=== PATIENT | male | born 1975 | race Caucasian/White ===

== ENCOUNTER 2017-07-23 19:57 | Emergency (ER) | payer OTHER ==
[2017-07-23 20:02] VITALS: RESP 18
--- NOTE | 2017-07-23 20:09 | C.PDOC ---
History Of Present Illness 42 yo male come in for evaluation of facial laceration over left cheek sustained hour ago, "while playing sport with friends". Otherwise, pt denies LOC , syncope, severe headache, dizziness, visual changes, N/V, neck pain, drooling , dysphagia, dyspnea, trismus, CP, SOB, abd. pain, denies deformity, weakness, to B/L UEs and LEs. Ambulate to ED for evaluation, not n any apparent distress. Time Seen by Provider: 07/23/17 20:03 Chief Complaint (Nursing): Abnormal Skin Integrity History Per: Patient Onset/Duration Of Symptoms: Sudden Onset Past Medical History Reviewed: Historical Data, Nursing Documentation, Vital Signs Vital Signs: Last Vital Signs Temp 98.1 F 07/23/17 20:00 Pulse 79 07/23/17 20:00 Resp 18 07/23/17 20:00 BP 122/76 07/23/17 20:00 Pulse Ox 98 07/23/17 20:19 - Medical History PMH: No Chronic Diseases Surgical History: No Surg Hx Family History: States: Unknown Family Hx - Social History Hx Tobacco Use: No Hx Alcohol Use: No Hx Substance Use: No - Immunization History Hx Tetanus Toxoid Vaccination: No Hx Influenza Vaccination: Yes Hx Pneumococcal Vaccination: No Review Of Systems Except As Marked, All Systems Reviewed And Found Negative. Constitutional: Negative for: Fever, Chills Eyes: Negative for: Vision Change ENT: Negative for: Ear Discharge, Nose Discharge, Mouth Swelling Cardiovascular: Negative for: Chest Pain Respiratory: Negative for: Cough, Shortness of Breath Gastrointestinal: Negative for: Nausea, Vomiting, Abdominal Pain Skin: Positive for: Lesions Neurological: Negative for: Weakness, Numbness, Altered Mental Status, Headache , Dizziness Physical Exam - Physical Exam Appears: Well, Non-toxic, No Acute Distress Skin: Normal Color, Warm, Other (Left cheek: 2cm linear laceration, superficial , no wound FB, no palpable deformity, no edema, no discharges.) Head: Atraumatic, Normacephalic Eye(s): bilateral: PERRL, EOMI Ear(s): Bilateral: Normal Nose: No Discharge, No Deformity, No Tenderness Oral Mucosa: Moist, No Drooling Tongue: Normal Appearing Lips: Normal Appearing Throat: No Erythema, No Exudate, No Drooling Neck: Trachea Midline, No Midline Cervical Tenderness, No Paracervical Tenderness, No Step Off Deformity, Supple Chest: No Deformity, No Tenderness Gastrointestinal/Abdominal: Soft, No Tenderness Back: No Vertebral Tenderness Extremity: Normal ROM, No Tenderness, No Deformity Extremity: Bilateral: Atraumatic Neurological/Psych: Oriented x3, Normal Speech, Normal Motor, Normal Sensation, Normal Reflexes ED Course And Treatment O2 Sat by Pulse Oximetry: 98 Pulse Ox Interpretation: Normal Progress Note: On re-eavluation, pt is afebrile, hemodynamicaly stable. Non- toxic. AMbulaoty rin ED with stable agit. Head: NC, (+) Left cheek laceration repaired with skin adhesive w/o complication. No deformity, no contusion, no wound discahrges. neck: Supple, (-) midline tenderness. Neurologicaly intact. Pt advised OBS 48 hrs for any sign of head injury-return to ED if any new changes. Advised on wound care. ref. to f/u with PMD in 2 days for re-eval. Laceration - Laceration Repair Left cheek Wound Length (In cm): 2 Description Of Wound: Linear Wound Cleansed With: Betadine Wound Examination: Irrigated With Saline, No FB With Wound Exploration Wound Closure: Steri Strips, Skin Glue Wound Complexity: Simple Disposition Counseled Patient/Family Regarding: Diagnosis, Need For Followup - Disposition Referrals: [facility] [Outside] Disposition: HOME/ ROUTINE Disposition Time: 20:13 Condition: STABLE Additional Instructions: OBSERVE 48 HOURS FOR ANY SIGN OF HEAD INJURY-INTRACTABLE HEADACHE, VOMITING, VISUAL CHANGES, FOCAL [id number] TO ED IMMEDIATELY FOR RE-EVALUATION. KEEP WOUND DRY FOR 3-4 DAYS DO NOT REMOVE STERI-STRIPS UNTIL IT FALLS OFF ITS OWN FOLLOW UP WITH PMD IN 2-3 DAYS FOR RE-EVALUATION. RETURN TO ED AT ANY TIME IF ANY SIGN OF INFECTION. Instructions: Laceration (ED), Head Injury (ED), Skin Adhesive Care (ED) Forms: [employer] (Malay) Print Language: ERITREAN - Clinical Impression Clinical Impression: Laceration, Head injury
[2017-07-23 20:38] VITALS: BP 117/72; PULSE 66; TEMP 97.8; O2SAT 96
== END 2017-07-23 20:39 | disposition home or self-care (01) ==
LOC: C.ER 19:57
DX: S01.412A Laceration without foreign body of left cheek and temporomandibular area, initial encounter (principal); S09.90XA Unspecified injury of head, initial encounter; X58.XXXA Exposure to other specified factors, initial encounter; Z23 Encounter for immunization

== ENCOUNTER 2017-07-26 23:32 | Emergency (ER) | payer OTHER ==
[2017-07-26 23:38] VITALS: BP 124/78; PULSE 67; RESP 16; TEMP 97.6; O2SAT 98
--- NOTE | 2017-07-26 23:54 | C.PDOC ---
History Of Present Illness Patient presents to ED for wound check of left cheek laceration sustained two days ago. Patient states he thinks yesterday he had some blood leaking from the area. Patient denies fever, redness, new injuries. Time Seen by Provider: 07/26/17 23:41 Chief Complaint (Nursing): Abnormal Skin Integrity History Per: Patient History/Exam Limitations: no limitations Location Of Injury: Left: Face Severity: Mild Past Medical History Reviewed: Historical Data, Nursing Documentation, Vital Signs Vital Signs: Last Vital Signs Temp 97.6 F 07/26/17 23:35 Pulse 67 07/26/17 23:35 Resp 16 07/26/17 23:35 BP 124/78 07/26/17 23:35 Pulse Ox 98 07/26/17 23:54 - Medical History PMH: No Chronic Diseases Family History: States: No Known Family Hx - Social History Hx Tobacco Use: No Hx Alcohol Use: No Hx Substance Use: No - Immunization History Hx Tetanus Toxoid Vaccination: Yes Hx Influenza Vaccination: Yes Hx Pneumococcal Vaccination: No Review Of Systems Except As Marked, All Systems Reviewed And Found Negative. Constitutional: Negative for: Fever, Chills Cardiovascular: Negative for: Chest Pain Respiratory: Negative for: Cough, Shortness of Breath Skin: Positive for: Other (left facial laceration ). Negative for: Rash Physical Exam - Physical Exam Appears: Well, Non-toxic, No Acute Distress Skin: Other (well healing left sided facial laceration, inferior to left eye, approx 2cm in length, no dehisence, no erythema, no discharge ) Eye(s): bilateral: Normal Inspection Oral Mucosa: Moist Cardiovascular: Rhythm Regular Respiratory: Normal Breath Sounds, No Rales, No Rhonchi, No Wheezing Neurological/Psych: Oriented x3 ED Course And Treatment O2 Sat by Pulse Oximetry: 98 (RA) Pulse Ox Interpretation: Normal Progress Note: Patient reassessed that wound is healing well and has no signs of infection. Steri-strip applied to area by me, patient tolerated well. He was instructed to follow up with PMD/clinic in 1-2 days, and understands he should return to ED if he has any concerning symptoms. Disposition Counseled Patient/Family Regarding: Diagnosis, Need For Followup - Disposition Referrals: [facility] [Outside] Disposition: HOME/ ROUTINE Disposition Time: 23:50 Condition: STABLE Additional Instructions: FOLLOW UP WITH YOUR DOCTOR/CLINIC IN 1-2 DAYS RETURN TO ER IF YOU HAVE ANY CONCERNING SYMPTOMS Instructions: Acute Wound Care (ED) Forms: [employer] ([place]an) Print Language: POLISH - Clinical Impression Clinical Impression: Facial laceration, Visit for wound check
== END 2017-07-27 | disposition home or self-care (01) ==
LOC: C.ER 23:32
DX: Z48.00 Encounter for change or removal of nonsurgical wound dressing (principal)

== ENCOUNTER 2018-09-12 17:23 | Emergency (ER) | payer OTHER, MEDICAID ==
[2018-09-12 17:39] VITALS: BP 116/79; PULSE 75; RESP 18; TEMP 98; O2SAT 98
--- NOTE | 2018-09-12 17:50 | C.PDOC ---
History Of Present Illness 43 year old male presents to the ED complaining of left shoulder pain that began this morning after waking up. Pain is aching, non-radiating, and worse with movement. Denies taking any medications for the pain. Denies weakness or numbness. Time Seen by Provider: 09/12/18 17:46 Chief Complaint (Nursing): Upper Extremity Problem/Injury History Per: Patient History/Exam Limitations: no limitations Onset/Duration Of Symptoms: Hrs Current Symptoms Are (Timing): Still Present Quality: Aching Exacerbating Factor(s): Movement Past Medical History Reviewed: Historical Data, Nursing Documentation, Vital Signs Vital Signs: Last Vital Signs Temp 98 F 09/12/18 17:36 Pulse 75 09/12/18 17:36 Resp 18 09/12/18 17:36 BP 116/79 09/12/18 17:36 Pulse Ox 98 09/12/18 17:36 - Medical History PMH: No Chronic Diseases Family History: States: No Known Family Hx - Social History Hx Tobacco Use: No Hx Alcohol Use: No Hx Substance Use: No - Immunization History Hx Tetanus Toxoid Vaccination: Yes Hx Influenza Vaccination: Yes Hx Pneumococcal Vaccination: No Review Of Systems Musculoskeletal: Positive for: Shoulder Pain (left) Neurological: Negative for: Weakness, Numbness Physical Exam - Physical Exam Appears: Non-toxic, No Acute Distress Skin: Warm, Dry, No Rash Head: Normacephalic Eye(s): bilateral: Normal Inspection Nose: Normal Oral Mucosa: Moist Neck: Supple Chest: Symmetrical Extremity: Normal ROM (left shoulder), Capillary Refill (less than 2 sec to left shoulder ), No Deformity, No Swelling Pulses: Left Radial: Normal, Right Radial: Normal Neurological/Psych: Oriented x3, Normal Speech, Normal Motor, Normal Sensation, Normal Reflexes Gait: Steady ED Course And Treatment O2 Sat by Pulse Oximetry: 98 (RA) Pulse Ox Interpretation: Normal Medical Decision Making Medical Decision Making: Impression: Shoulder pain atraumatic Plan: Motrin. Based on history and exam, xray not clinically indicated. Patient treated with Motrin with moderate relief. Patient stable for discharge and to follow up with PMD. Recommend analgesics. Disposition Counseled Patient/Family Regarding: Diagnosis, Need For Followup, Rx Given - Disposition Referrals: Kayla Lindo MD [Staff Provider] - Mega Foster MD [Staff Provider] - Disposition: HOME/ ROUTINE Disposition Time: 18:00 Condition: GOOD Additional Instructions: You can apply heat or ice to area Take Tylenol 500mg for any pain Take Ibuprofen as needed for pain every 6-8 hours, with food to not upset stomach Prescriptions: Ibuprofen [Motrin] 600 mg PO Q8 #30 tab Instructions: Muscle Strain (DC) Forms: [employer] (Ukrainian) - POA Present On Arrival: None - Clinical Impression Clinical Impression: Shoulder strain - PA / [employer] / Resident Statement MD/DO has reviewed & agrees with the documentation as recorded. - Scribe Statement The provider has reviewed the documentation as recorded by the Scribe Michelle Mayorga All medical record entries made by the Juan Diego were at my direction and personally dictated by me. I have reviewed the chart and agree that the record accurately reflects my personal performance of the history, physical exam, medical decision making, and the department course for this patient. I have also personally directed, reviewed, and agree with the discharge instructions and disposition.
== END 2018-09-12 18:08 | disposition home or self-care (01) ==
LOC: C.ER 17:23
DX: S46.912A Strain of unspecified muscle, fascia and tendon at shoulder and upper arm level, left arm, initial encounter (principal); X58.XXXA Exposure to other specified factors, initial encounter